=== PATIENT | male | born 1990 | race Caucasian/White ===

== ENCOUNTER 2016-10-20 21:22 | Emergency (ER) | payer OTHER ==
[~2016-10-20] VITALS: Ht 167.6 cm; Wt 108.9 kg
[2016-10-20 21:29] VITALS: BP 120/70
[2016-10-20 23:15] LABS: APPEARANCE,URINE SL CLOUDY (CLEAR); BILIRUBIN,URINE NEGATIVE (NEGATIVE); BLOOD, URINE TRACE-I (NEGATIVE); COLOR,URINE YELLOW (YELLOW); LEUKOCYTE ESTERASE ,URINE NEGATIVE (NEGATIVE); NITRITE, URINE NEGATIVE (NEGATIVE); PROTEIN,URINE NEGATIVE (NEGATIVE); UGLUCOSE NEGATIVE (NEGATIVE); UROBILINOGEN,URINE 0.2 EU/dL (0.2 - 1)
[2016-10-21 00:01] LABS: BACTERIA,URINE FEW /HPF (None Seen); MUCUS,URINE 4+ /LPF (None Seen); RBC,URINE 0-5 (RARE) /HPF (0-5); SQUAMOUS EPITHELIAL CELL,UR 0-3 (FEW) /LPF (0-3 (FEW)); WBC,URINE 0-5 (RARE) /HPF (0-5)
--- NOTE | 2016-10-21 00:07 | NUR ---
TO ER BED 8
--- NOTE | 2016-10-21 00:12 | NUR ---
C/O LEFT PELVIC PAIN AND LEFT TESTICLE LOW FOR 3 DAYS. PT STATES NO MED HX. DENIES N/V/D; SKIN IS PINK/WARM/DRY; AAOX4 WITH EVEN AND STEADY GAIT; LUNGS CLEAR BL; HR EVEN AND REGULAR; PT DENIES ANY FEVER, CP, SOB, OR COUGH AT THIS TIME; PATIENT STATES PAIN OF 4/10 AT THIS TIME; VSS; PATIENT POSITIONED FOR COMFORT; HOB ELEVATED; BEDRAILS UP X2; BED DOWN. ER MD MADE AWARE OF PT STATUS.
--- NOTE | 2016-10-21 02:46 | NUR ---
PT RESTING IN BED. NO SOB NOTED AT THIS TIME.
[2016-10-21 03:02] VITALS: BP 112/57
--- NOTE | 2016-10-21 03:03 | NUR ---
Patient discharged with v/s stable. Written and verbal after care instructions given and explained. Patient alert, oriented and verbalized understanding of instructions. Ambulatory with steady gait. All questions addressed prior to discharge. ID band removed. Patient advised to follow up with PMD. NO Rx WERE given. Patient educated on indication of medication including possible reaction and side effects. Opportunity to ask questions provided and answered.
== END 2016-10-21 03:03 | disposition home or self-care (01) ==
LOC: MED 21:22
DX: N50.812 Left testicular pain (principal); N44.00 Torsion of testis, unspecified; Z98.890 Other specified postprocedural states
CPT/HCPCS: 76870; 81001; 87086; 99285; Q0092